=== PATIENT | female | born 1965 | race American Indian/Alaskan Native ===

== ENCOUNTER 2017-03-27 17:32 | Emergency (ER) | payer MEDICAID ==
[2017-03-27] MEDS: TORADOL IM ONE (18:30)
[2017-03-27] MEDS: ZOFRAN ODT PO ONE (18:31)
--- NOTE | 2017-03-27 18:39 | Emergency Department Report ---
Entered by WILFREDO REAL, acting as scribe for JAMA PINTO PA. Chief Complaint: Abdominal Pain Stated Complaint: ABD PAIN/NAUSEA/VOMITING Time Seen by Provider: 03/27/17 17:52 - HPI History of Present Illness: Pt c/o 06/13, sharp LLQ abdominal pain that began 8 days ago. Reports N/V/D and left side pain. Pt states she was seen admitted on 03/16/17-03/19/2017 in [place]. Patient states she had a bad abdominal infection. Takes prescribed Keflex, which she's been taking every 6 hours for UTI for 8 days with no relief. Reports urinary frequency and urgency. Reports dysuria Reports nausea and vomiting Reports left low back pain PMHx of arthritis, diabetes mellitus, and renal stones PSHx of cholecystectomy, kidney stones, and 2 hernia mesh repair surgeries, Left urethral stent placed - ROS Review of Systems: All system are negative unless stated in HPI above. - Exam Vital Signs: Vital Signs 03/27/17 17:42 Temperature 98.7 F Pulse Rate 75 Respiratory 18 Rate Blood Pressure 151/97 O2 Sat by Pulse 98 Oximetry Physical Exam: General: well nourished, well developed, 52 year old female in mild distress and nontoxic in appearance Abdomen: Soft, normal bowel sounds in all quadrants. Positive guarding. No rigidity. LLQ tenderness. Left CVA tenderness MSE screening note: Focused history and physical exam performed. Due to findings the following was ordered: see below ED Medical Decision Making - Medical Decision Making MDM: Patient screened by provider in triage area. Appropriate protocol initiated. Patient to be seen by MD on main ED side. Patient given Toradol 60 mg IM in triage and Zofran 4 mg ODT. ED Disposition for MSE Condition: Stable Instructions: Abdominal Pain (ED) This documentation as recorded by the scribe,WILFREDO REAL,accurately reflects the service I personally performed and the decisions made by me,JAMA PINTO PA.
[2017-03-27 18:41] LABS: Basophils % (Auto) 0.6 % (0.0-1.8); Eosinophils % (Auto) 1.1 % (0.0-4.3); Hematocrit 40.8 % (30.3-42.9); Hemoglobin 13.9 gm/dl (10.1-14.3); Mean Corpuscular HGB Conc 34 % (30-34); Mean Corpuscular Hemoglobin 33 pg (28-32); Mean Corpuscular Volume 97 fl (79-97); Platelet Count 205 K/mm3 (140-440); Red Blood Count 4.23 M/mm3 (3.65-5.03); Red Cell Distribution Width 14.8 % (13.2-15.2); White Blood Count 13.5 K/mm3 (4.5-11.0)
[2017-03-27 18:59] LABS: Alanine Aminotransferase 19 units/L (7-56); Albumin 4.5 g/dL (3.9-5); Albumin/Globulin Ratio 1.3 %; Alkaline Phosphatase 71 units/L (35-129); Anion Gap 19 mmol/L; BUN/Creatinine Ratio 16.66; Blood Urea Nitrogen 15 mg/dL (7-17); Calcium 9.3 mg/dL (8.4-10.2); Carbon Dioxide 26 mmol/L (22-30); Glucose 176 mg/dL (65-100); Lipase 27 units/L (13-60); Sodium 142 mmol/L (137-145)
--- NOTE | 2017-03-27 19:22 | Cat Scan Report ---
FINAL REPORT EXAM: CT ABDOMEN PELVIS WO CON HISTORY: h/o kidney stones with LLQ and LT flank pain TECHNIQUE: CT abdomen and pelvis without contrast PRIORS: None. FINDINGS: No acute abnormality identified in the lung bases. No focal abnormality identified within the liver parenchyma. The spleen demonstrates normal size and attenuation. No pancreatic abnormalities seen. Right kidney demonstrates no evidence for hydronephrosis or nephrolithiasis There is a left ureteral stent. Proximal end is within the proximal ureter at the ureteropelvic junction. Distal end is within the urinary bladder Multiple calcifications are identified in the lower pole left kidney largest measuring approximately 1.3 by 0.5 centimeters. There is moderate left hydronephrosis and hydroureter. There are left ureteral calcifications present. Adjacent to the stent within the mid to distal ureter there are multiple small calcific densities largest approximately 0.39 centimeters in. Additionally there are 2 calcifications seen adjacent to the stent within the distal left ureter just proximal to the ureterovesical junction largest measuring approximately 0.5 centimeters in length There are 2 ventral midline supraumbilical hernia is present no bowel loops within the hernia sacs. There is evidence for prior hernia repair The adrenal glands are unremarkable. Abdominal aorta is normal in caliber. No pathologically enlarged lymph nodes are identified. No signs of free fluid or free air No evidence of small bowel dilatation. No evidence of colonic dilatation. No pericolonic inflammatory change seen. There are 2 large calcifications seen within the lower pelvis which appear to be within the cervix with the urethral or periurethral largest measuring 1.3 x 1.2 centimeters. IMPRESSION: Moderate left hydronephrosis and hydroureter Left ureteral stent Multiple calcifications seen within the left ureter along the course of the stent from the mid through the distal ureter Additional lower pole nonobstructing left renal calculi Multiple calcifications in the lower pelvis. Etiology is uncertain they appear to be within the cervix and may be periurethral Evidence for prior hernia repair. Two ventral hernias present no bowel loops within the hernia sacs
[2017-03-27 20:10] LABS: Bacteria,Urine 1+ /HPF (Negative); Bilirubin,Urine NEG (Negative); Blood,Urine MOD (Negative); Ketones,Urine NEG (Negative); Leukocyte Esterase,Urine LG (Negative); Nitrite,Urine NEG (Negative); Urobilinogen,Urine < 2.0 mg/dL (<2.0)
[2017-03-27 20:13] LABS: WBC,Urine > 182.0 /HPF (0.0-6.0)
[2017-03-27 21:20] VITALS: BP 132/66
--- NOTE | 2017-03-27 22:54 | Emergency Department Report ---
HPI - General Chief Complaint: Abdominal Pain Time Seen by Provider: 03/27/17 22:10 - HPI HPI: This is a 52-year-old Afro-[place] female presents emergency Department with complaint of left-sided flank and abdominal pain that has been going on for the past few days, associated with some nausea and vomiting. The patient has a history of recurrent kidney stones and urinary tract infections. She says that she is on her fourth left ureteral stent. She had a lithotripsy done by her urologist, Dr. Prater, 3 weeks ago. She recently went to visit her mother in [place] and had a three-day admission to the hospital for a urinary tract infection and "they saw trash inside (my ureter)." Patient has not taken anything for symptoms prior to presentation. She called the urologist today but was told she could not get an appointment until Monday and said she could not wait that long for pain relief. She otherwise has a past medical history of diabetes, arthritis and has a past surgical history as well of cholecystectomy and hernia repair. ED Past Medical Hx - Past Medical History Hx Diabetes: Yes Hx Arthritis: Yes Hx Kidney Stones: Yes - Surgical History Past Surgical History?: Yes Hx Cholecystectomy: Yes Additional Surgical History: Hernia repair, Kidneystone removal - Social History Smoking Status: Never Smoker Substance Use Type: None - Medications Home Medications: Home Medications Medication Instructions Recorded Confirmed Last Taken Type Ciprofloxacin HCl [Ciprofloxacin 500 mg PO Q12H #14 tab 03/27/17 Unknown Rx TAB] HYDROcodone/APAP 5-325 [[place] 1 each PO Q6HR PRN #10 tablet 03/27/17 Unknown Rx 5/325] Ondansetron [Zofran Odt] 4 mg PO Q8H PRN #10 tab.rapdis 03/27/17 Unknown Rx ED Review of Systems ROS: Stated complaint: ABD PAIN/NAUSEA/VOMITING Other details as noted in HPI Comment: All other systems reviewed and negative Constitutional: denies: chills, fever Eyes: denies: eye pain, eye discharge, vision change ENT: denies: ear pain, throat pain Respiratory: denies: cough, shortness of breath, wheezing Cardiovascular: denies: chest pain, palpitations Gastrointestinal: abdominal pain, nausea, vomiting Genitourinary: dysuria. denies: urgency, discharge Musculoskeletal: denies: back pain, joint swelling, arthralgia Skin: denies: rash, lesions Neurological: denies: headache, weakness, paresthesias Physical Exam - Physical Exam Vital Signs: Vital Signs 03/27/17 03/27/17 03/27/17 17:42 21:19 21:32 Temperature 98.7 F 98.3 F Pulse Rate 75 72 Respiratory 18 18 18 Rate Blood Pressure 151/97 Blood Pressure 132/66 [Right] O2 Sat by Pulse 98 96 Oximetry Physical Exam: GENERAL: The patient is well-developed well-nourished. HEENT: Normocephalic. Atraumatic. Extraocular motions are intact. Patient has moist mucous membranes. Pupils equal reactive to light bilaterally. NECK: Supple. Trachea is midline. CHEST/LUNGS: Clear to auscultation. There is no respiratory distress noted. HEART/CARDIOVASCULAR: Regular. There is no tachycardia. There is no gallop rub or murmur. ABDOMEN: Abdomen is soft. Unable to reproduce left-sided abdominal and flank pain to palpation. Patient has normal bowel sounds. There is no abdominal distention. Obese habitus. SKIN: Skin is warm and dry. NEURO: The patient is awake, alert, and oriented. The patient is cooperative. The patient has no focal neurologic deficits. The patient has normal speech. MUSCULOSKELETAL: There is no tenderness or deformity. There is no limitation range of motion. There is no evidence of acute injury. ED Course Vital Signs 03/27/17 03/27/17 03/27/17 17:42 21:19 21:32 Temperature 98.7 F 98.3 F Pulse Rate 75 72 Respiratory 18 18 18 Rate Blood Pressure 151/97 Blood Pressure 132/66 [Right] O2 Sat by Pulse 98 96 Oximetry - Consultations Consultation #1: I spoke to the patient's urologist, Dr. Prater, who listened to the case presentation including CT results and feels that the patient is safe for discharge home to follow-up in his office and would like her to call tomorrow and they will try to work her in. 03/27/17 22:53 ED Medical Decision Making - Lab Data Result diagrams: 03/27/17 18:31 03/27/17 18:31 - Radiology Data Radiology results: report reviewed CT of the abdomen and pelvis without contrast shows moderate left hydronephrosis and hydroureter. Left ureteral stent. Multiple calcifications seen within the left ureter along the course of the stent from the mid to distal ureter. Additional lower pole nonobstructing calculi in the left renal pelvis. Multiple calcifications in the lower pelvis. Etiology is uncertain as a period within the cervix and may be periurethral. Evidence for prior hernia repair. 2 ventral hernias present with no bowel loops within the hernia sacs. - Medical Decision Making 52-year-old female presents to the emergency department with a history of recurrent stones, left ureteral stent, urinary tract infections. Patient does have a urinary tract infection seen on urinalysis. Final signs stable including being afebrile. CT shows multiple stones adjacent to the left ureteral stent with moderate left-sided hydronephrosis and hydroureter. I spoke with the patient's urologist who did not feel that the patient required transfer or immediate surgical intervention and has agreed to see the patient in his office tomorrow. She will be given antibiotics, pain medication and antinausea medication. She was given a dose of pain medication here and upon reevaluation she is feeling improved. She will return to the ER with any worsening of her symptoms or any acute distress. - Differential Diagnosis hydronephrosis, nephrolithiasis, pyelonephritis, UTI, colitis Critical Care Time: No Critical care attestation.: If time is entered above; I have spent that time in minutes in the direct care of this critically ill patient, excluding procedure time. ED Disposition Clinical Impression: Ureterolithiasis, Nephrolithiasis Hydronephrosis Qualifiers: Hydronephrosis type: unspecified Qualified Code(s): N13.30 - Unspecified hydronephrosis Disposition: TO HOME OR SELFCARE Is pt being admited?: No Condition: Stable Instructions: Urinary Tract Infection in Women (ED), Hydronephrosis (ED), Renal Colic (ED) Additional Instructions: Please call your urologist tomorrow for an appointment. Return to the emergency department with any worsening of her symptoms or any acute distress. You've been prescribed a medication that is sedating. Therefore this medication cannot be mixed with alcohol, or taken prior to driving, working, or being responsible for children. Prescriptions: Ciprofloxacin HCl [Ciprofloxacin TAB] 500 mg PO Q12H #14 tab HYDROcodone/APAP 5-325 [[place] 5/325] 1 each PO Q6HR PRN #10 tablet PRN Reason: Pain Ondansetron [Zofran Odt] 4 mg PO Q8H PRN #10 tab.rapdis PRN Reason: Nausea Referrals: KARELY GONZALEZ MD [Primary Care Provider] - 3-5 Days MURALI PRATER MD [Referring] - [facility] Time of Disposition: 23:31
[2017-03-27] MEDS: ROCEPHIN/NS 1 GM/50 ML 1 GM/50 ML BAG IV ONE (23:00)
[2017-03-27] MEDS: MORPHINE IV ONE (23:00)
[2017-03-27] MEDS: ZOFRAN IV ONE (23:00)
== END 2017-03-28 00:30 | disposition home or self-care (01) ==
LOC: ED 17:32
DX: N20.1 Calculus of ureter (principal); N13.30 Unspecified hydronephrosis; E11.9 Type 2 diabetes mellitus without complications
CPT/HCPCS: 36415; 74176; 80053; 81001; 83690; 84703; 85025; 96365; 96372; 96375; 99284; J0696; J1885; J2270; J2405; Q0162

== ENCOUNTER 2018-10-05 17:14 | Emergency (ER) | payer MEDICARE, OTHER ==
[2018-10-05] MEDS ORDERED: IBUPROFEN PO ONE (18:06)
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
--- NOTE | 2018-10-05 18:53 | XRay Report ---
FINAL REPORT EXAM: XR SHOULDER 2+V LT HISTORY: left shoulder pain TECHNIQUE: 3 views of the left shoulder PRIORS: None. FINDINGS: AC joint degenerative change with mild to moderate articular surface irregularity and juxta-articular hypertrophy. Glenohumeral joint degenerative change with slight inferior articular surface irregularity. Acromiohumeral region within normal limits. No acute fracture or dislocation is evident. IMPRESSION: No acute skeletal pathology
--- NOTE | 2018-10-05 18:54 | XRay Report ---
FINAL REPORT EXAM: XR CHEST ROUTINE 2V HISTORY: left sided chest pain TECHNIQUE: 2 view examination of the chest PRIORS: None FINDINGS: Limited examination due to prominent soft tissue attenuation. There is no visible pulmonary consolidation, pleural effusion, or pneumothorax. Cardiac silhouette size is normal without vascular congestion. No visible acute displaced fracture in the regional skeleton. IMPRESSION: No evidence of acute cardiopulmonary disease
[2018-10-07 12:34] VITALS: BP 171/92
== END 2018-10-05 19:51 | disposition home or self-care (01) ==
LOC: ED 17:14
DX: S46.912A Strain of unspecified muscle, fascia and tendon at shoulder and upper arm level, left arm, initial encounter (principal); M94.0 Chondrocostal junction syndrome [Tietze]; E11.9 Type 2 diabetes mellitus without complications; M19.90 Unspecified osteoarthritis, unspecified site; F17.200 Nicotine dependence, unspecified, uncomplicated; Z87.442 Personal history of urinary calculi; V49.49XA Driver injured in collision with other motor vehicles in traffic accident, initial encounter; Y93.89 Activity, other specified; Y92.89 Other specified places as the place of occurrence of the external cause; Y99.8 Other external cause status
CPT/HCPCS: 71046